=== PATIENT | male | born 1945 | race Caucasian/White ===

== ENCOUNTER 2018-04-22 10:25 | Observation (INO) | payer BC, OTHER ==
[~2018-04-22] VITALS: Ht 177.8 cm; Wt 88.6 kg
[2018-04-22 10:46] LABS: BASOPHILS % (AUTO) 0.4 % (0.0-5.0); EOSINOPHILS % (AUTO) 2.4 % (0.0-8.0); HEMATOCRIT 42.5 % (42-54); MEAN CORPUSCULAR HEMOGLOBIN 32.8 pg (27.0-33.0); MEAN CORPUSCULAR HGB CONC 34.2 g/dL (32.0-36.0); MONOCYTES % (AUTO) 7.3 % (3.0-13.0); NEUTROPHILS % (AUTO) 75.9 % (40.0-77.0); NUCLEATED RED BLOOD CELLS 0.1 % (0.0-0.19); PLATELET COUNT (AUTO) 273 K/uL (130-400); RED BLOOD CELL COUNT(AUTO) 4.43 MIL/uL (4.50-6.20); RED CELL DISTRIBUTION WIDTH 14.2 % (11.0-15.5)
[2018-04-22 10:56] LABS: CREATININE 3.4 mg/dL (0.5-1.5); POTASSIUM 3.9 mmol/L (3.5-5.1)
[2018-04-22 11:05] LABS: ALBUMIN 3.5 g/dL (3.5-5.0); BILIRUBIN,TOTAL 0.2 mg/dL (0.2-1.0); TOTAL PROTEIN, SERUM 7.2 g/dL (6.0-8.3)
[2018-04-22 11:06] LABS: INR 1.01 (0.85-1.15); PARTIAL THROMBOPLASTIN TIME 28.1 SEC (26.3-35.5); PROTHROMBIN TIME 10.6 SEC (9.6-11.6)
[2018-04-22] MEDS ORDERED: ENOXAPARIN SODIUM 100 MG/1 ML SQ ONE (11:59)
[2018-04-22] MEDS ORDERED: ACETAMINOPHEN 325 MG TAB PO PRN (12:45)
[2018-04-22] MEDS ORDERED: ONDANSETRON HCL 4 MG/2 ML VIAL IVP PRN (12:45)
[2018-04-22] MEDS ORDERED: AMLO10TA7 PO (16:58)
[2018-04-22] MEDS ORDERED: HYDR-4153 PO (16:58)
[2018-04-22] MEDS ORDERED: CHOL100044 PO (16:58)
[2018-04-22] MEDS ORDERED: SODI650T PO (16:58)
[2018-04-22] MEDS ORDERED: ATOR40TA71 PO (16:58)
[2018-04-22] MEDS ORDERED: OMEP20CA10 PO (16:58)
[2018-04-22] MEDS ORDERED: PHOS250T2 PO (16:58)
[2018-04-22] MEDS ORDERED: LOPE2CAP14 PO (16:58)
[2018-04-22] MEDS ORDERED: FOLI1CAP16 PO (16:58)
[2018-04-22] MEDS ORDERED: GABA-531 PO (16:58)
[2018-04-22] MEDS ORDERED: NITR0.4T SL (16:58)
[2018-04-22] MEDS ORDERED: AEC81 PO (16:58)
[2018-04-22] MEDS ORDERED: POTA500T PO (16:58)
[2018-04-22 18:33] LABS: TROPONIN I 7.28 ng/mL (0.00-0.06)
--- NOTE | 2018-04-22 19:05 | NUR ---
PT ARRIVED TO UNIT
--- NOTE | 2018-04-22 19:20 | NUR ---
DR. Sana GUERRERO WAS PAGED ABOUT TROP. CALLED BACKED AND WAS INFORMED OF TROP. LEVEL OF 7.28
[2018-04-22 19:53] VITALS: BP 165/93
--- NOTE | 2018-04-22 20:00 | NUR ---
PT ASSESSMENT-PT IN BED, SITTING UP. ABLE TO AMBULATE WITH MINIMAL ASSIST. AAOX4. AMHARIC SPEAKING. CAME IN DUE TO CHEST PAIN AT HOME. HE TOOK ASPIRIN AND NITRO TO DECREASE CHEST PAIN. PT STATES NO CP AT THIS TIME. DISTENTION NOTED TO ABDOMEN. STATES LAST BM 04/22. LOOSE STOOL X1 EPISODE. LUNG SOUNDS-RHONCHI UPPER LOBES, DIMINISHED LOWER LOBES.
--- NOTE | 2018-04-22 20:30 | NUR ---
DR. Lexus GUERRERO CALLED BACK AND STATED TO CHEN FRANCIS. THAT HE WOULD SEE HIM IN THE AM.
[2018-04-22 23:03] VITALS: BP 154/89
--- NOTE | 2018-04-22 23:15 | NUR ---
DR. Lexus GUERRERO CALLED BACK TO ASK ABOUT PT BUN AND CREATININE. INFORMED OF PT LABS. STATED WAS PLANNING ON DOING AN ANGIOGRAM BUT WOULD NOT BE ABLE TO DUE TO HIGH BUN AND CR. ASKED IF PT HAD TAKEN ASPIRIN. WAS TOLD YES, AT HOME PRIOR TO BEING TRANSFERRED VIA EMS. ASKED ABOUT LOVENOX, INFORMED THAT 100MG OF LOVENOX WERE GIVEN AT THE ER. STATED THAT WAS ENOUGH, NO ORDERS FOR LOVENOX OR ASPIRIN STATES. NEW ORDERS FOR 2D ECHO, LEXISCAN, AND METOPROLOL 25MG PO Q6HRS PER DR. Lexus GUERRERO.
[2018-04-22] MEDS ORDERED: METOPROLOL TARTRATE 25 MG TAB ONE (23:52)
[2018-04-22] MEDS: METOPROLOL TARTRATE 25 MG TAB PO SCH (23:55)
--- NOTE | 2018-04-23 | NUR ---
PT UROSTOMY LEAKING. WAS OFFERED TO HAVE IT CHANGED TO A TEMPORARY COLOSTOMY BAG. REQUESTED FOR IT NOT TO BE CHANGED, WILL BRING NEW ONE IN THE AM. FOR NOW IT WAS TAPED AND BAG WAS PLACED UNDERNEATH TO HOLD URINE WHEN LEAKING.
--- NOTE | 2018-04-23 03:10 | NUR ---
UROSTOMY TO RLQ.
--- NOTE | 2018-04-23 03:11 | NUR ---
DISMISS NOTE Addendum: 04/23/18 at 0312 by EFRAÍN LYNN RN RN INCORRECT NOTE
[2018-04-23 03:53] VITALS: BP 160/97
[2018-04-23 04:00] LABS: HEMATOCRIT 42.5 % (42-54); MEAN CORPUSCULAR HEMOGLOBIN 31.8 pg (27.0-33.0); MEAN CORPUSCULAR HGB CONC 33.3 g/dL (32.0-36.0); MEAN CORPUSCULAR VOLUME 95.7 fL (79-99); PLATELET COUNT (AUTO) 240 K/uL (130-400); RED BLOOD CELL COUNT(AUTO) 4.45 MIL/uL (4.50-6.20); RED CELL DISTRIBUTION WIDTH 14.4 % (11.0-15.5); WHITE BLOOD COUNT (AUTO) 9.5 K/uL (4.8-10.8)
[2018-04-23 04:46] LABS: CREATININE 3.1 mg/dL (0.5-1.5); MAGNESIUM 2.2 mg/dL (1.80-2.40); PHOSPHORUS 3.6 mg/dL (2.5-4.9); POTASSIUM 4.2 mmol/L (3.5-5.1); THYROID STIMULATING HORMONE 1.9 uIU/mL (0.36-3.74); URIC ACID 6.8 mg/dL (2.6-7.2)
[2018-04-23 05:09] LABS: TROPONIN I 4.23 ng/mL (0.00-0.06)
[2018-04-23] MEDS: METOPROLOL TARTRATE 25 MG TAB PO SCH ×3 (06:17→18:13)
[2018-04-23] MEDS: PANTOPRAZOLE SODIUM 40 MG TABLET.DR PO SCH (06:47)
[2018-04-23 07:00] VITALS: BP 180/80
[2018-04-23] MEDS ORDERED: REGADENOSON 0.4 MG/5 ML PF SYG IVP SCH (09:00)
--- NOTE | 2018-04-23 09:00 | NUR ---
Patient taken to [facility]
--- NOTE | 2018-04-23 10:45 | NUR ---
Patient returned from [facility].
[2018-04-23 11:00] VITALS: BP 147/86
[2018-04-23] MEDS: FOLIC ACID/VITAMIN B COMP W-C 1 MG CAPSULE PO SCH (12:00)
[2018-04-23] MEDS: ASPIRIN 81MG TAB.CHEW PO SCH (12:00)
--- NOTE | 2018-04-23 12:45 | NUR ---
Patient in room, at bedside. Patient in no distress. Alert and awake. No other questions or concerns at this time.
--- NOTE | 2018-04-23 15:35 | NUR ---
Status Pending adamaris scan results. CM to continue to follow. CD
[2018-04-23 16:00] VITALS: BP 151/85
[2018-04-23 19:00] VITALS: BP 140/67
--- NOTE | 2018-04-23 20:00 | NUR ---
PM assessment Report received from AURA Blake. Plan of care discussed at bedside along as with patient. Patient remains AAO x3 without any signs of distress or chest pain. resting comfortably in bed. Physical assessment done -refer to chart. Will continue to monitor patient.
[2018-04-23 23:00] VITALS: BP 143/94
[2018-04-24] MEDS: METOPROLOL TARTRATE 25 MG TAB PO SCH ×3 (01:03→12:00)
[2018-04-24 03:00] VITALS: BP 158/95
[2018-04-24 07:00] VITALS: BP 171/84
[2018-04-24] MEDS: ASPIRIN 81MG TAB.CHEW PO SCH (08:52)
[2018-04-24] MEDS: PANTOPRAZOLE SODIUM 40 MG TABLET.DR PO SCH (08:52)
[2018-04-24] MEDS: FOLIC ACID/VITAMIN B COMP W-C 1 MG CAPSULE PO SCH (08:52)
--- NOTE | 2018-04-24 10:34 | NUR ---
SCRIPTS: CALLED IN SCRIPTS FOR ZETIA, PLAVIX, COREG AND IMDUR TO [email or web address] AND SPOKE WITH ROSITA EVERETT AT [phone].
[2018-04-24 11:00] VITALS: BP 142/75
== END 2018-04-24 16:15 | disposition home or self-care (01) ==
LOC: EDH 10:25 → EDHIP 12:21 → 2DH 19:29
PROVIDERS: ADMIT Internal Medicine Nephrology; ATTEND Internal Medicine Nephrology
DX: I21.4 Non-ST elevation (NSTEMI) myocardial infarction (principal); I12.9 Hypertensive chronic kidney disease with stage 1 through stage 4 chronic kidney disease, or unspecified chronic kidney disease; N18.9 Chronic kidney disease, unspecified; N17.9 Acute kidney failure, unspecified; C61 Malignant neoplasm of prostate; C67.9 Malignant neoplasm of bladder, unspecified; E78.5 Hyperlipidemia, unspecified; I25.10 Atherosclerotic heart disease of native coronary artery without angina pectoris; D64.9 Anemia, unspecified; I25.5 Ischemic cardiomyopathy; K21.9 Gastro-esophageal reflux disease without esophagitis; F17.210 Nicotine dependence, cigarettes, uncomplicated; Z85.46 Personal history of malignant neoplasm of prostate; Z85.51 Personal history of malignant neoplasm of bladder; Z93.6 Other artificial openings of urinary tract status; Z95.1 Presence of aortocoronary bypass graft
CPT/HCPCS: 36415 ×2; 71045; 78452 ×2; 80048; 80053; 80061; 82550 ×3; 83735; 83874 ×3; 83880; 84100; 84443; 84484 ×4; 84550; 85025; 85027; 85610; 85730; 93005 ×3; 93017; 93306; 99291; A9500 ×4; G0378 ×52; J1650; J2785; 96374